=== PATIENT | male | born 1955 | race Caucasian/White ===

== ENCOUNTER 2017-02-13 20:43 | Emergency (ER) | payer SELFPAY ==
[~2017-02-13] VITALS: Ht 170.2 cm; Wt 72.3 kg
[2017-02-13] MEDS ORDERED: LISI-167 PO (21:17)
[2017-02-13] MEDS ORDERED: PROP10TA PO (21:17)
[2017-02-13] MEDS ORDERED: FENO160T PO (21:17)
[2017-02-13] MEDS ORDERED: ZOLP5TAB6 PO (21:17)
[2017-02-13] MEDS ORDERED: OXYC-223 PO (21:17)
[2017-02-13] MEDS ORDERED: TERA1CAP3 PO (21:17)
[2017-02-13] MEDS ORDERED: SODIUM CHLORIDE FLUSH 10ML SYR IVF ONE (21:30)
[2017-02-13] MEDS ORDERED: LISINOPRIL 20 MG TABLET PO ONE (21:30)
[2017-02-13 21:31] LABS: HEMOGLOBIN 14.9 g/dL (13.7-18.0)
[2017-02-13] MEDS ORDERED: LISINOPRIL 20 MG TABLET ONE (21:41)
[2017-02-13 21:44] LABS: ASPARTATE AMINO TRANSFERASE 11 U/L (15-37); BLOOD UREA NITROGEN 8 mg/dL (7-18)
[2017-02-13] MEDS ORDERED: PLEASE ENTER ALLERGIES MC SCH ×2 (22:30)
[2017-02-13 22:50] VITALS: BP 168/81
[2017-02-13 23:31] LABS: IS PT STATUS REG ER OR PRE ER? YES
== END 2017-02-13 23:05 | disposition home or self-care (01) ==
LOC: ED 22:55
DX: I10 Essential (primary) hypertension (principal); M19.90 Unspecified osteoarthritis, unspecified site; F17.210 Nicotine dependence, cigarettes, uncomplicated
CPT/HCPCS: 36415; 80053; 84484; 85025; 93005

== ENCOUNTER 2017-04-03 19:21 | Inpatient (IN) | payer SELFPAY ==
[~2017-04-03] VITALS: Ht 172.7 cm; Wt 70.9 kg
[~2017-04-03 19:21] MED LIST: FENO160T PO; LISI-167 PO; OXYC-223 PO; PROP10TA PO; TERA1CAP3 PO; ZOLP5TAB6 PO
[2017-04-03] MEDS ORDERED: ONDANSETRON 2MG/ML, 2ML IVPush ONE (20:00)
[2017-04-03] MEDS ORDERED: SODIUM CHLORIDE 0.9% 1,000ML IVBOLUS ONE (20:00)
[2017-04-03] MEDS ORDERED: MORPHINE SULFATE 4 MG/ML, 1ML IV ONE (20:00)
[2017-04-03] MEDS ORDERED: SODIUM CHLORIDE FLUSH 10ML SYR IVF ONE ×2 (20:00)
[2017-04-03] MEDS ORDERED: ENALAPRILAT 1.25 MG/ML, 2ML IV ONE (20:00)
[2017-04-03] MEDS ORDERED: LORazepam 2 MG/ML, 1ML IVPush ONE (20:00)
[2017-04-03] MEDS ORDERED: NITROGLYCERIN OINT 2%, 1GM TP ONE ×2 (20:00→20:22)
[2017-04-03 20:13] LABS: BLOOD UREA NITROGEN 6 mg/dL (7-18)
[2017-04-03 20:21] LABS: ASPARTATE AMINO TRANSFERASE 19 U/L (15-37)
[2017-04-03] MEDS ORDERED: MORPHINE SULFATE 4 MG/ML, 1ML ONE ×2 (20:22→21:06)
[2017-04-03] MEDS ORDERED: ENALAPRILAT 1.25 MG/ML, 2ML ONE (20:22)
[2017-04-03] MEDS ORDERED: LORazepam 2 MG/ML, 1ML ONE (20:23)
[2017-04-03] MEDS ORDERED: ONDANSETRON 2MG/ML, 2ML ONE (20:23)
[2017-04-03 20:33] LABS: IS PT STATUS REG ER OR PRE ER? YES
[2017-04-03 21:15] VITALS: BP 172/78
[2017-04-03] MEDS ORDERED: LISI1TAB5 PO (21:19)
[2017-04-03] MEDS ORDERED: MORPHINE SULFATE 4 MG/ML, 1ML IVPush PRN (21:30)
[2017-04-03] MEDS ORDERED: ZOLPIDEM 5MG TABLET PO PRN (23:30)
[2017-04-03] MEDS ORDERED: hydrALAzine 20 MG/ML, 1ML IV PRN (23:30)
[2017-04-03] MEDS ORDERED: LISINOPRIL 20 MG TABLET PO ONE (23:30)
[2017-04-03] MEDS: NICOTINE 21 MG/24 HR PATCH.TD24 TD SCH (23:30)
[2017-04-03] MEDS: OXYcodone/APAP 7.5/325MG TABLET PO PRN (23:40)
[2017-04-04] MEDS ORDERED: morphine SULFATE 10 MG/ML, 1ML IVPush PRN
[2017-04-04] MEDS ORDERED: POLYETHYLENE GLYCOL 17 GM PACKET PO PRN
[2017-04-04] MEDS ORDERED: BISACODYL 10 MG SUPP PR PRN
[2017-04-04] MEDS ORDERED: ONDANSETRON 2MG/ML, 2ML IVPush PRN
[2017-04-04] MEDS ORDERED: ACETAMINOPHEN 325 MG TABLET PO PRN
[2017-04-04] MEDS: HEPARIN 5,000 UNITS/ML, 1ML SQ SCH ×4 (00:19→23:45)
[2017-04-04] MEDS: SODIUM CHLORIDE 0.9% 1,000 ML IV SCH ×2 (00:47→17:03)
[2017-04-04 00:56] VITALS: BP 143/73
[2017-04-04] MEDS: NICOTINE 21 MG/24 HR PATCH.TD24 TD SCH ×3 (02:18→23:47)
[2017-04-04 03:12] LABS: POTASSIUM,URINE RANDOM 4 mmol/L
[2017-04-04] MEDS: LORazepam 1MG TABLET PO PRN ×3 (03:28→21:54)
[2017-04-04] MEDS: PROPRANOLOL 20 MG TABLET PO SCH ×2 (05:59→17:03)
[2017-04-04 06:03] LABS: ASPARTATE AMINO TRANSFERASE 13 U/L (15-37); BLOOD UREA NITROGEN 6 mg/dL (7-18)
[2017-04-04 06:30] VITALS: BP 128/78
[2017-04-04] MEDS: AMLODIPINE 5 MG TABLET PO SCH (09:11)
[2017-04-04] MEDS: LISINOPRIL 20 MG TABLET PO SCH ×2 (09:11→21:53)
[2017-04-04] MEDS: FENOFIBRATE 145 MG TABLET PO SCH (09:11)
[2017-04-04] MEDS: OXYcodone/APAP 7.5/325MG TABLET PO PRN ×2 (09:11→16:03)
[2017-04-04] MEDS: SENNA/DOCUSATE TABLET PO SCH (09:11)
[2017-04-04] MEDS: TERAZOSIN 1MG CAPSULE PO SCH (09:12)
[2017-04-04] MEDS ORDERED: OMNIPAQUE 350 MG/ML, 100ML BOTTLE ONE (09:58)
[2017-04-04 12:34] VITALS: BP 124/75
[2017-04-04 18:36] VITALS: BP 123/71
[2017-04-04 21:52] VITALS: BP 103/68
[2017-04-05 00:43] VITALS: BP 120/69
[2017-04-05] MEDS: OXYcodone/APAP 7.5/325MG TABLET PO PRN ×2 (04:05→14:15)
[2017-04-05 05:43] LABS: BLOOD UREA NITROGEN 9 mg/dL (7-18)
[2017-04-05] MEDS: SODIUM CHLORIDE 0.9% 1,000 ML IV SCH ×2 (05:58→21:53)
[2017-04-05] MEDS: PROPRANOLOL 20 MG TABLET PO SCH ×2 (05:59→17:38)
[2017-04-05 06:35] VITALS: BP 116/69
[2017-04-05] MEDS: HEPARIN 5,000 UNITS/ML, 1ML SQ SCH ×3 (08:18→23:47)
[2017-04-05] MEDS: AMLODIPINE 5 MG TABLET PO SCH (08:18)
[2017-04-05] MEDS: LISINOPRIL 20 MG TABLET PO SCH ×2 (08:19→21:53)
[2017-04-05] MEDS: TERAZOSIN 1MG CAPSULE PO SCH (08:19)
[2017-04-05] MEDS: SENNA/DOCUSATE TABLET PO SCH (08:20)
[2017-04-05] MEDS: FENOFIBRATE 145 MG TABLET PO SCH (08:20)
[2017-04-05] MEDS: LORazepam 1MG TABLET PO PRN ×3 (08:49→23:47)
[2017-04-05 13:45] VITALS: BP 135/76
[2017-04-05 20:19] VITALS: BP 129/71
[2017-04-05] MEDS: NICOTINE 21 MG/24 HR PATCH.TD24 TD SCH (21:59)
[2017-04-06] MEDS: NICOTINE 21 MG/24 HR PATCH.TD24 TD SCH
[2017-04-06 00:47] VITALS: BP 123/73
[2017-04-06] MEDS: OXYcodone/APAP 7.5/325MG TABLET PO PRN (04:17)
[2017-04-06 05:59] VITALS: BP 152/76
[2017-04-06] MEDS: PROPRANOLOL 20 MG TABLET PO SCH (06:01)
[2017-04-06 06:19] LABS: BLOOD UREA NITROGEN 8 mg/dL (7-18)
[2017-04-06 06:45] VITALS: BP 186/94
[2017-04-06] MEDS ORDERED: AMLODIPINE 5 MG TABLET PO SCH (09:00)
== END 2017-04-06 09:01 | disposition left against medical advice (07) | DRG 641 ==
LOC: ED 20:43 → EDIP 20:44 → ED 21:02 → 5SO 22:09
DX: E87.1 Hypo-osmolality and hyponatremia (principal); I16.9 Hypertensive crisis, unspecified; M10.00 Idiopathic gout, unspecified site; E11.9 Type 2 diabetes mellitus without complications; I10 Essential (primary) hypertension; E78.5 Hyperlipidemia, unspecified; F17.210 Nicotine dependence, cigarettes, uncomplicated; Z80.6 Family history of leukemia; E86.0 Dehydration
CPT/HCPCS: 36415; 70450; 71010; 71260; 80048; 80053; 82436; 83880; 83930; 83935; 84133; 84295; 84300; 84484; 85025; 93005; 96361; 96374; 96375; 96376; J1644; J2405; Q9967; J2060; J7030